=== PATIENT | female | born 1975 | race Caucasian/White ===

== ENCOUNTER 2019-12-27 10:28 | Emergency (ER) | payer MEDICAID ==
[~2019-12-27] VITALS: Ht 160 cm; Wt 65.0 kg
[2019-12-27] MEDS ORDERED: HYDROCODONE/ACETAMINOPHEN 5/325MG TABLET PO STA (11:13)
[2019-12-27] MEDS ORDERED: LIDOCAINE 1%/EPI 1:100,000 10 ML VIAL IJ ONE (11:15)
[2019-12-27] MEDS ORDERED: BACITRACIN ZINC OINT UDPKT TOP ONE (11:15)
[2019-12-27 15:28] VITALS: BP 138/87
== END 2019-12-27 15:29 | disposition home or self-care (01) ==
LOC: ER 10:44
DX: S42.351A Displaced comminuted fracture of shaft of humerus, right arm, initial encounter for closed fracture (principal); V49.59XA Passenger injured in collision with other motor vehicles in traffic accident, initial encounter; Y93.89 Activity, other specified; Y92.89 Other specified places as the place of occurrence of the external cause; Y99.8 Other external cause status; S01.81XA Laceration without foreign body of other part of head, initial encounter; M25.551 Pain in right hip
CPT/HCPCS: 70450; 70486; 72125; 73030; 73060; 73502; 81025; 99285; J3490; L3670